=== PATIENT | female | born 1955 | race Caucasian/White ===

== ENCOUNTER 2023-03-31 12:47 | Emergency (ER) | payer MEDICAID ==
[~2023-03-31] VITALS: Ht 162.6 cm; Wt 72.3 kg
[2023-03-31 13:02] VITALS: O2SAT 99
[2023-03-31] MEDS ORDERED: NAPR500T7 MT (15:23)
[2023-03-31] MEDS: KETOROLAC 30MG/ML VIAL IM ONE (16:58)
[2023-03-31 18:24] VITALS: BP 110/63; PULSE 88; RESP 14; TEMP 98.1
== END 2023-03-31 18:25 | disposition home or self-care (01) ==
LOC: ER 12:47
DX: M79.601 Pain in right arm (principal); E11.9 Type 2 diabetes mellitus without complications; I10 Essential (primary) hypertension; W01.0XXA Fall on same level from slipping, tripping and stumbling without subsequent striking against object, initial encounter; Y93.89 Activity, other specified; Y92.89 Other specified places as the place of occurrence of the external cause; Y99.8 Other external cause status
CPT/HCPCS: 73060; 29105; 96372; 99283; J1885; Z7610

== ENCOUNTER 2023-04-08 14:28 | Emergency (ER) | payer MEDICAID ==
[~2023-04-08] VITALS: Ht 162.6 cm; Wt 65.0 kg
[~2023-04-08 14:28] MED LIST: NAPR500T7 MT
[2023-04-08 14:43] VITALS: BP 119/72; PULSE 103; RESP 20; TEMP 98.5; O2SAT 99
[2023-04-08] MEDS ORDERED: ACETAMINOPHEN 325MG TABLET PO ONE (19:15)
[2023-04-08] MEDS ORDERED: IBUPROFEN 400MG TABLET PO ONE (19:15)
== END 2023-04-08 21:07 | disposition left against medical advice (07) ==
LOC: ER 14:28
DX: Z53.21 Procedure and treatment not carried out due to patient leaving prior to being seen by health care provider (principal)
CPT/HCPCS: 99281